=== PATIENT | male | born 1950 | race Two or more races ===

== ENCOUNTER 2020-04-12 10:31 | Inpatient (IN) | payer MEDICARE, OTHER ==
[~2020-04-12] VITALS: Ht 167.6 cm; Wt 74.0 kg
[2020-04-12] MEDS ORDERED: FLEET ENEMA(ADULT) 135 ML PR ONE (11:00)
[2020-04-12 12:04] LABS: Basophils # (auto) 0 10 ^3/uL (0-0.2); Basophils % (auto) 0.3 % (0.0-2.0); Eosinophils # (auto) 0 10 ^3/uL (0-0.8); Eosinophils % (auto) 0.1 % (0.0-7.0); Hematocrit 46.6 % (41.0-53.0); Hemoglobin 16.1 g/dL (13.5-17.5); Lymphocytes # (auto) 0.6 10 ^3/uL (0.4-5.4); Lymphocytes % (auto) 5.1 % (10.0-50.0); Mean Corpuscular Hemoglobin 31.2 pg (28.0-32.0); Mean Corpuscular Hgb Conc. 34.6 g/dL (32.0-36.0); Mean Corpuscular Volume 90.2 fL (80.0-100.0); Monocytes # (auto) 0.6 10 ^3/uL (0-1.3); Monocytes % (auto) 5.1 % (0.0-12.0); Neutrophils # (auto) 10.9 10 ^3/uL (1.6-8.6); Neutrophils % (auto) 89.4 % (37.0-80.0); Nucleated Red Blood Cells % 0.3 %; Platelet Count (auto) 187 10^3/uL (140-450); Red Blood Cells 5.17 10^6/uL (4.5-5.90); Red Cell Distribution Width 13.3 % (11.8-14.3); White Blood Cell 12.1 10^3/uL (4.4-10.8)
[2020-04-12 12:41] LABS: Calcium 8.8 mg/dL (8.5-10.1); Potassium 3.8 mmol/L (3.5-5.1)
[2020-04-12 12:47] LABS: BUN/Creatinine Ratio 13.4; Bilirubin, Total 1.2 mg/dL (0.2-1.0); Total Protein 7.6 g/dL (6.4-8.2)
[2020-04-12 13:56] LABS: Urine Bacteria NONE SEEN /hpf (None Seen); Urine Blood Negative /uL (Negative); Urine Mucus FEW (None Seen); Urine WBC 3 /hpf (0 - 3)
[2020-04-12] MEDS ORDERED: LACTULOSE 20Gm/30ML SOLN PO ONE (14:45)
[2020-04-12] MEDS ORDERED: cefTRIAXone 1GM/50ML D5W 50 ML IV ONE ×2 (15:00→15:30)
[2020-04-12] MEDS ORDERED: ONDANSETRON HCL 4 MG/2 ML VIAL IV PRN (15:30)
[2020-04-12] MEDS ORDERED: traMADol HCL 50 MG TAB PO PRN (16:00)
[2020-04-12] MEDS ORDERED: ACETAMINOPHEN 500 MG TAB PO PRN (16:00)
[2020-04-12] MEDS ORDERED: LORazepam 0.5 MG TAB PO PRN (16:00)
[2020-04-12] MEDS: SODIUM CHLORIDE 0.9% 1,000 ML IV SCH (16:29)
[2020-04-12] MEDS: FAMOTIDINE 20 MG TAB PO SCH (22:18)
[2020-04-12] MEDS: metroNIDAZOLE 500MG/100ML 100 ML IV SCH (22:18)
[2020-04-12] MEDS: MILK OF MAGNESIA 30ML SUSP PO SCH (22:18)
[2020-04-13] MEDS: SODIUM CHLORIDE 0.9% 1,000 ML IV SCH ×3 (01:45→22:21)
[2020-04-13 04:00] VITALS: BP 144/87
[2020-04-13 04:15] VITALS: BP 144/87
[2020-04-13] MEDS: metroNIDAZOLE 500MG/100ML 100 ML IV SCH ×3 (05:50→22:22)
[2020-04-13 08:06] LABS: Basophils # (auto) 0.1 10 ^3/uL (0-0.2); Basophils % (auto) 0.4 % (0.0-2.0); Eosinophils # (auto) 0 10 ^3/uL (0-0.8); Eosinophils % (auto) 0.2 % (0.0-7.0); Hematocrit 46.7 % (41.0-53.0); Hemoglobin 15.6 g/dL (13.5-17.5); Lymphocytes # (auto) 1.1 10 ^3/uL (0.4-5.4); Lymphocytes % (auto) 7.9 % (10.0-50.0); Mean Corpuscular Hemoglobin 30.5 pg (28.0-32.0); Mean Corpuscular Hgb Conc. 33.4 g/dL (32.0-36.0); Mean Corpuscular Volume 91.2 fL (80.0-100.0); Monocytes # (auto) 0.9 10 ^3/uL (0-1.3); Monocytes % (auto) 6.8 % (0.0-12.0); Neutrophils # (auto) 11.4 10 ^3/uL (1.6-8.6); Neutrophils % (auto) 84.7 % (37.0-80.0); Platelet Count (auto) 203 10^3/uL (140-450); Red Blood Cells 5.12 10^6/uL (4.5-5.90); Red Cell Distribution Width 13.1 % (11.8-14.3); White Blood Cell 13.5 10^3/uL (4.4-10.8)
[2020-04-13] MEDS: cefTRIAXone 1GM/50ML D5W 50 ML IV SCH (08:43)
[2020-04-13 09:00] VITALS: BP 127/59
[2020-04-13] MEDS ORDERED: ENOXAPARIN SOD 40 MG/0.4 ML SYRINGE SC SCH (10:00)
[2020-04-13] MEDS: FAMOTIDINE 20 MG TAB PO SCH ×2 (10:13→22:22)
[2020-04-13] MEDS: MILK OF MAGNESIA 30ML SUSP PO SCH ×2 (10:15→22:22)
[2020-04-13 16:00] VITALS: BP 149/88
[2020-04-13 22:00] VITALS: BP_SYST 156; BP_SYST 97; BP_DIAS 67; BP_DIAS 80
[2020-04-14 05:03] VITALS: BP 147/75
[2020-04-14] MEDS: metroNIDAZOLE 500MG/100ML 100 ML IV SCH ×3 (06:05→22:00)
[2020-04-14] MEDS: SODIUM CHLORIDE 0.9% 1,000 ML IV SCH ×2 (07:30→14:28)
[2020-04-14 07:44] LABS: Calcium 8.2 mg/dL (8.5-10.1); Potassium 3.4 mmol/L (3.5-5.1)
[2020-04-14 07:46] LABS: Basophils # (auto) 0 10 ^3/uL (0-0.2); Basophils % (auto) 0.3 % (0.0-2.0); Eosinophils # (auto) 0.1 10 ^3/uL (0-0.8); Eosinophils % (auto) 0.9 % (0.0-7.0); Hematocrit 41.3 % (41.0-53.0); Hemoglobin 14.1 g/dL (13.5-17.5); Lymphocytes # (auto) 0.7 10 ^3/uL (0.4-5.4); Lymphocytes % (auto) 10.5 % (10.0-50.0); Mean Corpuscular Hemoglobin 31.3 pg (28.0-32.0); Mean Corpuscular Hgb Conc. 34.2 g/dL (32.0-36.0); Mean Corpuscular Volume 91.6 fL (80.0-100.0); Monocytes # (auto) 0.6 10 ^3/uL (0-1.3); Monocytes % (auto) 9.2 % (0.0-12.0); Neutrophils # (auto) 5.4 10 ^3/uL (1.6-8.6); Neutrophils % (auto) 79.1 % (37.0-80.0); Platelet Count (auto) 162 10^3/uL (140-450); Red Blood Cells 4.51 10^6/uL (4.5-5.90); Red Cell Distribution Width 13.3 % (11.8-14.3); White Blood Cell 6.8 10^3/uL (4.4-10.8)
[2020-04-14 08:00] VITALS: BP 113/70
[2020-04-14 09:00] VITALS: BP 144/73
[2020-04-14] MEDS: cefTRIAXone 1GM/50ML D5W 50 ML IV SCH (09:01)
[2020-04-14] MEDS: MILK OF MAGNESIA 30ML SUSP PO SCH ×2 (09:50→22:00)
[2020-04-14] MEDS: FAMOTIDINE 20 MG TAB PO SCH ×2 (09:50→22:00)
[2020-04-14] MEDS ORDERED: BISACODYL 10 MG RECT SUPP PR ONE (10:45)
[2020-04-14] MEDS ORDERED: BISACODYL 5 MG EC TAB PO ONE (10:45)
[2020-04-14] MEDS ORDERED: POLYETHYLENE GLYCOL 17 GM PWDR PO ONE (10:45)
[2020-04-14 13:00] VITALS: BP 157/74
[2020-04-14] MEDS ORDERED: FLEET MINERAL OIL ENEMA 133 ML PR ONE (14:15)
[2020-04-14] MEDS ORDERED: MAGNESIUM CITRATE SOLUTION 300 ML BTL PO ONE (14:15)
[2020-04-14] MEDS ORDERED: POTASSIUM CHL 20 Meq TABLET PO ONE (14:15)
[2020-04-14 17:00] VITALS: BP 135/79
[2020-04-14 22:14] VITALS: BP 158/77
[2020-04-15] MEDS: SODIUM CHLORIDE 0.9% 1,000 ML IV SCH (03:53)
[2020-04-15 05:04] VITALS: BP 141/73
[2020-04-15] MEDS: metroNIDAZOLE 500MG/100ML 100 ML IV SCH (06:20)
[2020-04-15] MEDS: FAMOTIDINE 20 MG TAB PO SCH (08:57)
[2020-04-15] MEDS: cefTRIAXone 1GM/50ML D5W 50 ML IV SCH (08:57)
[2020-04-15] MEDS: MILK OF MAGNESIA 30ML SUSP PO SCH (08:57)
[2020-04-15 09:00] VITALS: BP 138/72
== END 2020-04-15 13:56 | disposition home or self-care (01) | DRG 394 ==
LOC: ER 10:31 → OVERFLOW 10:32 → CENTRAL 04-13 03:49
PROVIDERS: ADMIT Internal Medicine; ATTEND Internal Medicine
DX: K62.89 Other specified diseases of anus and rectum (principal); N39.0 Urinary tract infection, site not specified; K56.41 Fecal impaction; Z20.822 Contact with and (suspected) exposure to COVID-19
CPT/HCPCS: 36415; 71046; 74018; 74176; 80048; 80053; 81001; 82270; 82378; 83690; 83735; 84443; 85025; 87086; 87426; 96365; 96367; G0378; J0696; J3490

== ENCOUNTER 2020-07-28 20:33 | Emergency (ER) | payer SELFPAY ==
[~2020-07-28] VITALS: Ht 167.6 cm; Wt 70.3 kg
[2020-07-28 20:48] VITALS: BP 150/77
== END 2020-07-28 23:33 | disposition left against medical advice (07) ==
LOC: ER 20:33
DX: S91.051A Open bite, right ankle, initial encounter (principal); Z53.21 Procedure and treatment not carried out due to patient leaving prior to being seen by health care provider; W54.0XXA Bitten by dog, initial encounter; Y93.89 Activity, other specified; Y92.89 Other specified places as the place of occurrence of the external cause; Y99.8 Other external cause status

== ENCOUNTER 2020-07-29 07:51 | Emergency (ER) | payer SELFPAY ==
[~2020-07-29] VITALS: Ht 167.6 cm; Wt 69.9 kg
[2020-07-29 08:30] VITALS: BP 120/78
[2020-07-29] MEDS ORDERED: TETANUS-DIPTH-ACEL PERTUSSIS 0.5ML SYR Tdap IM ONE (08:30)
== END 2020-07-29 09:10 | disposition home or self-care (01) ==
LOC: ER 07:51
DX: S91.012A Laceration without foreign body, left ankle, initial encounter (principal); W54.0XXA Bitten by dog, initial encounter; Y93.89 Activity, other specified; Y92.89 Other specified places as the place of occurrence of the external cause; Y99.8 Other external cause status
CPT/HCPCS: 90471; 90715

== ENCOUNTER 2020-08-01 13:28 | Inpatient (IN) | payer MEDICARE ==
[~2020-08-01] VITALS: Ht 167.6 cm; Wt 74.3 kg
[2020-08-01 16:27] LABS: Basophils # (auto) 0 10 ^3/uL (0-0.2); Basophils % (auto) 0.5 % (0.0-2.0); Eosinophils # (auto) 0.1 10 ^3/uL (0-0.8); Eosinophils % (auto) 1.5 % (0.0-7.0); Hematocrit 44.6 % (41.0-53.0); Hemoglobin 15.5 g/dL (13.5-17.5); Lymphocytes # (auto) 1.1 10 ^3/uL (0.4-5.4); Lymphocytes % (auto) 16.7 % (10.0-50.0); Mean Corpuscular Hemoglobin 31.6 pg (28.0-32.0); Mean Corpuscular Hgb Conc. 34.7 g/dL (32.0-36.0); Mean Corpuscular Volume 91.1 fL (80.0-100.0); Monocytes # (auto) 0.6 10 ^3/uL (0-1.3); Monocytes % (auto) 8.6 % (0.0-12.0); Neutrophils # (auto) 4.7 10 ^3/uL (1.6-8.6); Neutrophils % (auto) 72.7 % (37.0-80.0); Nucleated Red Blood Cells % 0.1 %; Platelet Count (auto) 221 10^3/uL (140-450); Red Cell Distribution Width 13.6 % (11.8-14.3); White Blood Cell 6.5 10^3/uL (4.4-10.8)
[2020-08-01 16:43] LABS: Albumin 3.4 g/dL (3.4-5.0); BUN/Creatinine Ratio 10.2; Calcium 8.9 mg/dL (8.5-10.1); Potassium 3.9 mmol/L (3.5-5.1)
[2020-08-01 16:46] LABS: Bilirubin, Total 0.7 mg/dL (0.2-1.0); Total Protein 7.3 g/dL (6.4-8.2)
[2020-08-01] MEDS ORDERED: CLINDAMYCIN 300MG IV 50 ML IV ONE (17:00)
[2020-08-01] MEDS ORDERED: ACETAMINOPHEN 500 MG TAB PO PRN (18:15)
[2020-08-01] MEDS ORDERED: ONDANSETRON HCL 4 MG/2 ML VIAL IV PRN (18:15)
[2020-08-01] MEDS ORDERED: MORPHINE SULF INJ 2 MG/ML SYRINGE 1ML IV PRN (18:15)
[2020-08-01] MEDS ORDERED: levoFLOXacin 500MG 100 ML IV ONE (18:15)
[2020-08-01] MEDS ORDERED: HYDROcodone-ACET 5/325MG TAB PO PRN (18:15)
[2020-08-01 22:15] VITALS: BP 147/77
[2020-08-01 22:47] VITALS: BP 147/77
[2020-08-02] MEDS ORDERED: CYAN100T7 PO (01:06)
[2020-08-02] MEDS ORDERED: CLIN300C8 PO (01:06)
[2020-08-02] MEDS ORDERED: AMOX875T3 PO (01:06)
[2020-08-02] MEDS: CLINDAMYCIN 300MG IV 50 ML IV SCH ×2 (03:14→10:47)
[2020-08-02 05:00] VITALS: BP 138/81
[2020-08-02 08:00] VITALS: BP 133/71
[2020-08-02 12:00] VITALS: BP 136/75
[2020-08-02 17:00] VITALS: BP 138/77
[2020-08-02] MEDS: AMPICILLIN & SULBACTAM SODIUM 1.5 GM in SODIUM CHL 0.9% 100 ML IV SCH ×2 (18:03→23:59)
[2020-08-02 20:00] VITALS: BP 148/72
[2020-08-02 22:00] VITALS: BP 148/72
[2020-08-02] MEDS ORDERED: AMOXICILLIN/CLAVUL 875 MG TAB PO SCH (22:00)
[2020-08-03 05:00] VITALS: BP 136/72
[2020-08-03] MEDS: AMPICILLIN & SULBACTAM SODIUM 1.5 GM in SODIUM CHL 0.9% 100 ML IV SCH ×4 (05:59→23:28)
[2020-08-03 09:00] VITALS: BP_SYST 142; BP_SYST 153; BP_DIAS 70; BP_DIAS 95
[2020-08-03 13:00] VITALS: BP 137/71
[2020-08-03 17:00] VITALS: BP 149/76
[2020-08-03 22:00] VITALS: BP 141/69
[2020-08-04 04:31] VITALS: BP 138/75
[2020-08-04] MEDS: AMPICILLIN & SULBACTAM SODIUM 1.5 GM in SODIUM CHL 0.9% 100 ML IV SCH ×4 (06:21→23:36)
[2020-08-04 08:47] VITALS: BP 136/73
[2020-08-04 13:00] VITALS: BP_SYST 108; BP_SYST 125; BP_DIAS 67; BP_DIAS 77
[2020-08-04 16:58] VITALS: BP 115/66
[2020-08-04 22:00] VITALS: BP 140/66
[2020-08-05 04:47] VITALS: BP 126/71
[2020-08-05] MEDS: AMPICILLIN & SULBACTAM SODIUM 1.5 GM in SODIUM CHL 0.9% 100 ML IV SCH ×4 (05:49→23:50)
[2020-08-05 08:00] VITALS: BP 135/74
[2020-08-05 08:59] VITALS: BP 135/74
[2020-08-05 13:00] VITALS: BP 137/74
[2020-08-05 22:00] VITALS: BP 137/68
[2020-08-06 05:00] VITALS: BP 138/73
[2020-08-06] MEDS: AMPICILLIN & SULBACTAM SODIUM 1.5 GM in SODIUM CHL 0.9% 100 ML IV SCH (06:15)
[2020-08-06 08:00] VITALS: BP 142/86
== END 2020-08-06 11:00 | disposition home or self-care (01) | DRG 603 ==
LOC: ER 13:28 → OVERFLOW 18:05 → CENTRAL 22:14
PROVIDERS: ADMIT Nurse Practitioner Acute Care; ATTEND Family Medicine
DX: L03.116 Cellulitis of left lower limb (principal); W54.0XXA Bitten by dog, initial encounter; Z83.3 Family history of diabetes mellitus; Y93.89 Activity, other specified; Y92.89 Other specified places as the place of occurrence of the external cause; Y99.8 Other external cause status
CPT/HCPCS: 36415; 80053; 83605; 85025; 87081; 87205; 87426; 96365; G0378; J0295; J1956; J3490